=== PATIENT | female | born 1975 | race Hispanic/Latino ===

== ENCOUNTER 2023-05-07 08:37 | Outpatient (CLI) | payer OTHER | END 2023-05-07 08:38 | disposition home or self-care (01) | LOC: BICMAMMO 08:37 | PROVIDERS: ATTEND Nurse Practitioner Family | DX: Z12.31 Encounter for screening mammogram for malignant neoplasm of breast (principal); R92.1 Mammographic calcification found on diagnostic imaging of breast | CPT/HCPCS: 77067 ==

== ENCOUNTER 2023-07-04 13:05 | Outpatient (CLI) | payer OTHER | END 2023-07-04 13:06 | disposition home or self-care (01) | LOC: BICMAMMO 13:05 | PROVIDERS: ATTEND Family Medicine | DX: R92.1 Mammographic calcification found on diagnostic imaging of breast (principal) | CPT/HCPCS: G0279 ==

== ENCOUNTER → 2023-08-21 | Day surgery (SDC) | payer OTHER | LOC: EEVIPCON 06:52 → MAMMO 06:52 | PROVIDERS: ATTEND Family Medicine | PROC: 0HB5XZX Excision of Chest Skin, External Approach, Diagnostic (ICD-10-PCS; principal; 2023-08-21) | DX: N60.91 Unspecified benign mammary dysplasia of right breast (principal); D24.1 Benign neoplasm of right breast; N60.11 Diffuse cystic mastopathy of right breast; R92.0 Mammographic microcalcification found on diagnostic imaging of breast | CPT/HCPCS: 19081; 76098; 88305; A4648 ==

== ENCOUNTER 2024-09-30 12:04 | Emergency (ER) | payer OTHER ==
[2024-09-30] MEDS ORDERED: Ibuprofen 800 MG TAB ONE (14:52)
== END 2024-09-30 15:00 | disposition home or self-care (01) ==
LOC: ERS 12:04
DX: S53.401A Unspecified sprain of right elbow, initial encounter (principal); I10 Essential (primary) hypertension; Z79.899 Other long term (current) drug therapy; X50.1XXA Overexertion from prolonged static or awkward postures, initial encounter
CPT/HCPCS: 99283